=== PATIENT | female | born 2005 ===

== ENCOUNTER 2024-01-14 13:56 | Inpatient (IN) | payer BC, SELFPAY ==
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
[2024-01-14 14:08] VITALS: BP 118/60; BP 98/74; PULSE 80; PULSE 90; RESP 18; TEMP 36.9; O2SAT 100; O2SAT 98; BMI 15.5
[2024-01-14 14:23] VITALS: BP 98/74; PULSE 90; RESP 18; TEMP 36.9; O2SAT 100
[2024-01-14 15:48] LABS: MANUAL DIFF FLAG NO
[2024-01-14 15:55] LABS: Basophils Percent Auto 0.5 % (0-2); Eosinophils Absolute Auto 0.1 X10*3/uL (0.0-0.4); Eosinophils Percent Auto 0.7 % (0-4); Hemoglobin 14.4 g/dl (12.0-16.0); Imm Gran Abs Auto 0.03 X10*3/uL (0.00-0.03); Imm Gran Pct Auto 0.4 % (0.0-0.4); Lymphocytes Absolute Auto 1.4 X10*3/uL (1.2-4.9); Lymphocytes Percent Auto 17.9 % (20-40); Mean Corpuscular HGB Conc 33.5 g/dl (31.0-35.0); Mean Corpuscular Hemoglobin 30.1 pg (27.0-33.0); Mean Platelet Volume 10.8 fL (9.4-12.3); Monocytes Absolute Auto 0.6 X10*3/uL (0.1-1.2); Monocytes Percent Auto 6.9 % (2-11); Neutrophils Absolute Auto 5.9 x10*3/uL (2.0-8.3); Neutrophils Percent Auto 73.6 % (45-73); Platelet Count 248 X10*3/uL (160-400); Red Blood Count 4.78 X10*6/uL (4.20-5.50); White Blood Count 8.1 X10*3/uL (4.8-10.8)
[2024-01-14 16:13] LABS: Ethanol < 10 mg/dL
[2024-01-14 16:14] LABS: Alanine Aminotransferase 8 U/L (0-31); Albumin Level 5.1 g/dL (3.5-5.0); Alkaline Phosphatase 47 U/L (39-117); Anion Gap 14 (12-20); Aspartate Amino Transferase 17 U/L (5-31); Bilirubin Total 0.8 mg/dL (0.0-1.0); Blood Urea Nitrogen 12 mg/dL (9-16); Calcium 10.7 mg/dL (8.4-10.2); Carbon Dioxide 27 mmol/L (22-29); Chloride 102 mmol/L (96-108); Creatinine Clr Calc Pharmacy 80.8; Estimated Glomerular Filt Rate > 60; Glucose Random 102 mg/dL (60-115); Potassium 3.9 mmol/L (3.3-5.1); Sodium 139 mmol/L (135-145); Total Protein 8.4 g/dL (6.5-8.0)
[2024-01-14 16:15] LABS: COVID-19 Test Negative (Negative); IDNOW Serial# 08D9AD1C
[2024-01-14 16:45] LABS: Appearance Urine Clear; Color Urine Yellow; Glucose Urine UA Negative (Negative); Leukocyte Esterase Urine Negative (Negative); Nitrite Urine Negative (Negative); Specific Gravity - Urine 1.015 (1.005-1.025); Urine Blood Negative (Negative); Urine Ketones Negative (Negative); Urine Protein Negative (Neg-Trace)
--- NOTE | 2024-01-14 16:52 | ED.PSYCH ---
HPI - Psych General Chief Complaint: Psychiatric Symptoms Stated Complaint: SI WITH A PLAN Time Seen by Provider: 01/14/24 16:07 Source: patient Mode of arrival: ambulatory Limitations: no limitations History of Present Illness HPI Narrative: Patient comes to the emergency room complaining of suicidal ideation. Patient states that earlier this year she was diagnosed with PTSD. Patient does not take any medication for anxiety or depression. Patient has a vague plan to woken to train tracks. Denies homicidal ideation. Patient denies any recent triggers. Related Data Home Medications ?Medication ?Instructions ?Recorded ?Confirmed No Known Home Meds 01/14/24 01/14/24 Allergies Allergy/AdvReac Type Severity Reaction Status Date / Time cetirizine [From [facility]] Allergy Anaphylaxis Verified 01/14/24 14:18 Review of Systems Review of Systems: Constitutional : No Weight loss, No Fever, No Chills, No Night Sweats, No Fatigue, No Malaise ENT/Mouth : No Hearing loss, No Ear Pain, No Nasal Congestion, No Sinus Pain, No Hoarseness, No sore throat, No Rhinorrhea, No Swallowing Difficulty Eyes: No Eye Pain, No Swelling, No Redness, No Foreign Body, No Discharge, No Vision Changes Cardiovascular : No Chest Pain, No SOB, No Dyspnea on Exertion, No Orthopnea, No Edema, No Palpitations Respiratory : No Cough, No Sputum, No Wheezing, No Smoke Exposure, No Dyspnea Gastrointestinal : No Nausea, No Vomiting, No Diarrhea, No Constipation, No abdominal Pain, No Hematochezia, No Melena Genitourinary : no irregular bleeding, No Dysuria, No Urinary Frequency, No Hematuria, No Urinary Incontinence, No Urgency, No Flank Pain, No Urinary Flow Changes, No Hesitancy Musculoskeletal : No joint pain, No Myalgias, No Joint Swelling Skin : No Skin Lesions, No rash Neuro : No Weakness, No Numbness, No Paresthesias, No Loss of Consciousness, No Dizziness, No Headache Psych : Complaining of anxiety and depression, suicidal ideation, no homicidal ideation Heme/Lymph: No Bruising, No Bleeding,No Lymphadenopathy Endocrine : No Polyuria, No Polydipsia, No Temperature Intolerance PMFSH Past Medical History Medical History (Updated 01/14/24 @ 16:57 by Mira Kinsey MD) Chronic post-traumatic stress disorder (PTSD) Social History Social History Alcohol intake: never Smoked in Last 30 Days: No Use of substances other than those prescribed or required for medical reasons: Yes Substance Use Type: Marijuana Substance Use Frequency: Chronic Longstanding Last Used Substance: Hours (ago) Any prior treatment program specific to substance use: No Advance Directives: No Advance Directives Information Provided: No Do you have a plan to hurt others: No Plan Patient : No Physical Exam Vital Signs: Vital Signs: Last Vital Signs Temp 98.4 F 01/14/24 14:23 Pulse 90 01/14/24 14:23 Resp 18 01/14/24 14:23 BP 98/74 01/14/24 14:23 Pulse Ox 100 01/14/24 14:23 O2 Del Method Room Air 01/14/24 14:23 BMI result Body Mass Index 15.5 Const: Other: Appearance: Alert. Oriented X3. No acute distress. Eyes: Pupils equal, round and reactive to light. ENT: Pharynx normal. Neck: Normal inspection. Neck supple. No lymph nodes noted. No crepitus CVS: Normal heart rate and rhythm. Pulses normal. Normal S1 and S2 Respiratory: No respiratory distress. Breath sounds normal. No Wheezing. No rales Abdomen: Soft and nontender. No rigidity. No distention. Skin: Skin warm and dry. Normal skin color. Normal skin turgor. Extremities: No lower extremity edema. No Lacerations. No Rash Neuro: Oriented X 3. No motor deficit. No sensory deficit. Moving all extremities. No slurred speech. CN 2 through 12 grossly intact Psych: calm, cooperative, crying, tearful Course Course Course Narrative: -all of patient's labs pending -care team consult pending -patient is on a Section 12 -physician observation started at 16:55 Medical Decision Making Medical Decision Making [facility] Narrative: My interpretation of labs: Normal hematology, normal chemistry, negative urinalysis, U tox positive for marijuana, negative for alcohol, negative for COVID Differential Diagnosis Differential Diagnoses: The differential diagnosis associated with the presentation includes (Anxiety, depression, polysubstance abuse) Admission/Observation Consideration of admission/observation: Escalation of care including admission/observation considered (Patient is on a Section 12, waiting to be seen by the care team) Lab Data 01/14/24 15:42 01/14/24 15:42 Labs: Lab Results 04/29/24 04/29/24 Range/Units 15:42 16:28 WBC 8.1 (4.8-10.8) X10*3/uL RBC 4.78 (4.20-5.50) X10*6/uL Hgb 14.4 (12.0-16.0) g/dl Hct 43.0 (37.0-47.0) % MCV 90.0 (80.0-98.0) fL MCH 30.1 (27.0-33.0) pg MCHC 33.5 (31.0-35.0) g/dl RDW 12.0 (11.0-16.0) % Plt Count 248 (160-400) X10*3/uL MPV 10.8 (9.4-12.3) fL Immature Gran % (Auto) 0.4 (0.0-0.4) % Neut % (Auto) 73.6 H (45-73) % Lymph % (Auto) 17.9 L (20-40) % [place] % (Auto) 6.9 (2-11) % Eos % (Auto) 0.7 (0-4) % Baso % (Auto) 0.5 (0-2) % Lymph # (Auto) 1.4 (1.2-4.9) X10*3/uL [place] # (Auto) 0.6 (0.1-1.2) X10*3/uL Eos # (Auto) 0.1 (0.0-0.4) X10*3/uL Baso # (Auto) 0.0 (0.0-0.2) X10*3/uL Abs Immat Gran (auto) 0.03 (0.00-0.03) X10*3/uL Absolute Neuts (auto) 5.9 (2.0-8.3) x10*3/uL Absolute Nucleated RBC 0.000 (0.0-0.012) X10*3/uL Nucleated RBC % (auto) 0.0 (0.0-0.2) /100WBC Sodium 139 (135-145) mmol/L Potassium 3.9 (3.3-5.1) mmol/L Chloride 102 (96-108) mmol/L Carbon Dioxide 27 (22-29) mmol/L Anion Gap 14 (12-20) BUN 12 (9-16) mg/dL Creatinine 0.81 (0.5-1.4) mg/dL Estim Creat Clear Calc 80.8 Estimated GFR > 60 Random Glucose 102 (60-115) mg/dL Calcium 10.7 H (8.4-10.2) mg/dL Total Bilirubin 0.8 (0.0-1.0) mg/dL AST 17 (5-31) U/L ALT 8 (0-31) U/L Alkaline Phosphatase 47 (39-117) U/L Total Protein 8.4 H (6.5-8.0) g/dL Albumin 5.1 H (3.5-5.0) g/dL Urine Color Yellow Urine Appearance Clear Urine pH 6.0 (5.0-9.0) Ur Specific [place] 1.015 (1.005-1.025) Urine Protein Negative (Neg-Trace) mg/dL Urine Glucose (UA) Negative (Negative) mg/dL Urine Ketones Negative (Negative) mg/dL Urine Blood Negative (Negative) Urine Nitrite Negative (Negative) Ur Leukocyte Esterase Negative (Negative) Ethyl Alcohol < 10 mg/dL COVID-19 (YVAN) Negative (Negative) COVID-19 Clin Com See Note Discharge Plan Discharge Clinical Impression: Suicidal ideation Patient Disposition: Still a Patient Prescriptions: No Action No Known Home Meds Interventions: Malcolm-Suicide Risk Severity Scale Last Done: 01/14/24 14:24 Print Language: Norwegian
[2024-01-14 16:54] LABS: Amphetamine Screen Urine Not Detected (Not Detect); Barbiturates, Urine Not Detected (Not Detect); Benzodiazepines Screen Urine Not Detected (Not Detect); Buprenorphine Scr Not Detected (Not Detect); Cannabinoid Screen Urine POSITIVE (Not Detect); Cocaine Screen Urine Not Detected (Not Detect); Fentanyl, urine Not Detected (Not Detect); Methadone Screen, Urine Not Detected (Not Detect); Opiate Screen Urine Not Detected (Not Detect); Oxycodone Screen Urine Not Detected (Not Detect); Phencyclidine Screen Urine Not Detected (Not Detect)
[2024-01-14 17:46] LABS: HCG Quantitative < 2 mIU/mL
[2024-01-14 21:10] VITALS: BP 118/80; PULSE 69; RESP 20; TEMP 36.8; O2SAT 100
[2024-01-14] MEDS: diphenhydrAMINE HCL 25 MG CAPSULE 50 MG PO (22:14)
[2024-01-15 06:00] VITALS: RESP 16
--- NOTE | 2024-01-15 06:21 | PC.NURSE ---
Patient requested medication help sleep, provider notified/ordered Benadryl 50 mg po/administered as ordered at 2214 with + delayed effect slept through the night, patient exhibits no psychiatric symptoms at this time, patient was assessed by care team with disposition section 12 inpatient bed search, VSS, patient is currently not on any home medication, no distress observed/reported, will continue to monitor
--- NOTE | 2024-01-15 06:49 | PC.NURSE ---
Assumed care of patient at 0645, patient appears to be sleeping, respirations even and unlabored, no apparent distress at this time. Continue plan of care for inpatient bedsearch
--- NOTE | 2024-01-15 11:43 | PC.NURSE ---
patient speaking on phone with counselor at school
[2024-01-15 13:15] VITALS: BP 121/72; PULSE 72; RESP 16; O2SAT 98
[2024-01-15 14:25] VITALS: BP 125/73; PULSE 75; RESP 16; TEMP 37.2; O2SAT 100; BMI 15.4
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
[2024-01-15 20:00] VITALS: BP 133/70; PULSE 80; RESP 17; TEMP 36.6; O2SAT 100
[2024-01-15] MEDS: traZODone HCL 50 MG TABLET PO (20:26)
[2024-01-16 07:15] VITALS: BP 98/60; PULSE 88; RESP 14; TEMP 36.1; O2SAT 97
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
[2024-01-16 09:13] LABS: Cholesterol 135 mg/dL (<200); Estimated Average Glucose 100 mg/dL; HDL Cholesterol 51 mg/dL (>40); Hemoglobin A1c % 5.1 % (<6.0); LDL Cholesterol Calculated 69 mg/dL (<100); Triglycerides 77 mg/dL (<150)
[2024-01-16 09:27] LABS: Free T4 (Free Thyroxine) 1.07 ng/dL (0.71-1.85)
[2024-01-16 10:35] LABS: Folate 11.5 ng/mL (> or = 4.0); Vitamin B12 394 pg/mL (200-900)
--- NOTE | 2024-01-16 14:08 | MHC.CLN ---
NUTRITION CONSULT FOR WEIGHT LOSS OF 30# X ONE YEAR. BMI=15.4. HAS TAKEN ENSURE FOR WEIGHT GAIN. ADDING ENSURE TID TO PROVIDE 1050 KCALS, 60 G PROTEIN. VISITED WITH PATIENT IN HER ROOM. REPORTS THAT SHE HAS GERD AND CANNOT EAT SOME FOODS. FOR DAIRY, WILL ONLY DRINK FAT FREE MILK. AVOIDS FATTY FOODS. DOES NOT EAT EGGS INCLUDING EGGS IN BAKED GOODS. ALLERGIES LISTED INCLUDE CHOCOLATE AND CITRUS. DOES NOT TYPICALLY EAT TOMATOES BUT WILL PUT KETCHUP ON A VEGGIE BURGER. ASKED FOR CHICKEN WITH LUNCH IN ADDITION TO MEAL PROVIDED. THIS MIXING PICKER TENDER DELIVERED CHICKEN, SKIM MILK, AND ENSURE SUPPLEMENT. PREFERS 5 SMALL MEALS. DISCUSSED KEEPING ENSURE FROM THE MEAL TRAY A SNACK. NURSE AWARE OF DISCUSSION ABOUT FOOD PREFERENCES AND KEEPING ENSURE SNACK. DISCUSSED PREFERENCES WITH KITCHEN STAFF.
[2024-01-16 19:35] VITALS: BP 115/78; PULSE 103; TEMP 36.1; O2SAT 100
[2024-01-16] MEDS: traZODone HCL 50 MG TABLET PO (22:23)
[2024-01-16] MEDS: Melatonin 3 MG TABLET 6 MG PO (22:23)
[2024-01-17 07:00] VITALS: BMI 15.4
[2024-01-17 08:00] VITALS: BP 93/57; PULSE 94; RESP 16; TEMP 36.8; O2SAT 98
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
[2024-01-17 19:15] VITALS: BP 122/71; PULSE 90; RESP 16; TEMP 37.1; O2SAT 98
[2024-01-17] MEDS: traZODone HCL 50 MG TABLET PO (20:38)
[2024-01-17] MEDS: Melatonin 3 MG TABLET 6 MG PO (20:38)
[2024-01-18 07:35] VITALS: BP 103/61; PULSE 79; RESP 14; TEMP 37.1; O2SAT 98
== END 2024-01-18 10:35 | disposition home or self-care (01) | DRG 756 ==
LOC: HO.ED 17:58 → HO.PADLT16 01-15 12:05
PROVIDERS: Admitting Provider Psychiatry & Neurology Psychiatry; Emergency Provider Emergency Medicine; PCP Family Medicine; Visit Provider Psychiatry & Neurology Psychiatry
DX: F41.9 Anxiety disorder, unspecified (principal); R45.851 Suicidal ideations; F43.12 Post-traumatic stress disorder, chronic; K21.9 Gastro-esophageal reflux disease without esophagitis; G43.909 Migraine, unspecified, not intractable, without status migrainosus; Z20.822 Contact with and (suspected) exposure to COVID-19; Z62.811 Personal history of psychological abuse in childhood
CPT/HCPCS: 36415; 80053; 80061; 80307; 81003; 82607; 82746; 83036; 84439; 84443; 84702; 85025; 87635; 99285; S9485

== ENCOUNTER → 2024-01-15 11:59 | Outpatient (BNV) | payer BC, SELFPAY | PROVIDERS: Admitting Provider Psychiatry & Neurology Psychiatry; Emergency Provider Emergency Medicine; PCP Family Medicine; Visit Provider Psychiatry & Neurology Psychiatry | DX: F43.11 Post-traumatic stress disorder, acute (principal); F41.9 Anxiety disorder, unspecified | CPT/HCPCS: 90792; 99231; 99239 ==